=== PATIENT | female | born 1965 | race Caucasian/White ===

== ENCOUNTER 2021-11-28 00:30 | Day surgery (SDC) | payer BC, SELFPAY ==
[2021-11-16 13:22] VITALS: BMI 23.1
[2021-11-28 07:33] VITALS: BP 110/72; PULSE 86; RESP 18; TEMP 36.2; O2SAT 100
[2021-11-28] MEDS: LACTATED RINGERS 1,000 ML 150 ML IV CONT (07:41)
--- NOTE | 2021-11-28 08:12 | WPDGICN ---
Assessment and Plan Assessment and plan (1) Encounter for screening colonoscopy: Code(s): Z12.11 - Encounter for screening for malignant neoplasm of colon Status: Acute Assessment and Plan: Patient presents for screening colonoscopy. Appears to be at average risk for colon polyps. GI Consult Note Consult date/time: 11/28/21 08:12 HPI: Cris Ureña is a 56 year old female Presents for screening colonoscopy. Patient's current weight appetite and bowel movements are normal. She denies abdominal pain. She has had no bleeding. Family history is noncontributory. 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 History of IBS History of uterine fibroid HSV (herpes simplex virus) infection Menopause Neck nodule Nicotine dependence, cigarettes, uncomplicated Other fatigue Tobacco use Viral syndrome Vulvar cancer Surgical History Surgical History History of appendectomy Family History Family History Father Hypertension Family history of elevated blood lipids Cerebrovascular accident Family history of coronary artery disease Family history of hypercholesterolemia Family history of kidney disease Mother Patient's mother is in good health Patient's mother is Social History Social History Smoking packs per day: 0.5 Smoking cigarettes per day: 10.0 Years smoked: 40 Smoking pack-years: 20.00 Smoking status: Current every day smoker Tobacco type: cigarettes Second hand tobacco smoke exposure: Yes Alcohol intake: current Drinks per week: 14 Alcohol use details: socially Substance use: never Substance use type: does not use Living arrangements: with family Spiritual care concerns: No Meds Home Medications and Allergies Home Medications Medication Instructions Recorded Confirmed Type valacyclovir 500 mg tablet See Rx Instructions .ROUTE 02/02/21 11/16/21 Rx .COMPLEX #90 tablet conj estrogen-medroxyprogesterone 1 tablet PO DAILY #28 tablet 07/05/21 11/16/21 Rx 0.3 mg-1.5 mg tablet Adults Multivitamin 1 tab-cap PO DAILY 11/16/21 11/16/21 History aspirin [Adult Low Dose Aspirin] 81 mg PO DAILY 11/16/21 11/16/21 History Allergies Allergy/AdvReac Type Severity Reaction Status Date / Time iodine Allergy Unknown Hives Verified 11/28/21 07:32 Penicillins Allergy Unknown Hives Verified 11/28/21 07:32 Vital Signs Vital Signs - 24 hr 11/28/21 07:33 Temperature 97.1 F L Pulse Rate 86 Respiratory Rate 18 Blood Pressure 110/72 Pulse Oximetry 100 Exam Narrative: Physical exam reveals patient to be alert. Vital signs stable. HEENT exam is unremarkable. Patient is anicteric. Lungs are clear to auscultation and percussion. Heart is without murmur or extra sounds. Abdominal exam bowel sounds are present soft nontender with no hepatosplenomegaly. Digital external rectal exam is normal.
--- NOTE | 2021-11-28 08:12 | WPDANESEPPF ---
Anes - Initial Pre Proc Eval Procedure: Operation Date: 11/28/21 08:30 Proposed Procedures p Screening Colonoscopy - Stephen Alcantar MD Date/Time: 11/28/21 08:12 Surgeon: Stephen Alcantar MD Pre Op Diagnosis: neoplasm screening Patient Data Age: 56 Gender: F Height: 1.78 m Weight: 73.6 kg Last Vital Signs Temp 36.2 C L 11/28/21 07:33 Pulse 86 11/28/21 07:33 Resp 18 11/28/21 07:33 BP 110/72 11/28/21 07:33 Pulse Ox 100 11/28/21 07:33 Allergies Allergy/AdvReac Type Severity Reaction Status Date / Time iodine Allergy Unknown Hives Verified 11/28/21 07:32 Penicillins Allergy Unknown Hives Verified 11/28/21 07:32 Home Medications Medication Instructions Recorded Confirmed Type valacyclovir 500 mg tablet See Rx Instructions .ROUTE 02/02/21 11/16/21 Rx .COMPLEX #90 tablet conj estrogen-medroxyprogesterone 1 tablet PO DAILY #28 tablet 07/05/21 11/16/21 Rx 0.3 mg-1.5 mg tablet Adults Multivitamin 1 tab-cap PO DAILY 11/16/21 11/16/21 History aspirin [Adult Low Dose Aspirin] 81 mg PO DAILY 11/16/21 11/16/21 History Patient hx anesthesia problems: none Family hx anesthesia problems: none Results Review: All pre-operative results and documents have been reviewed as part of the pre-operative evaluation. 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 History of IBS History of uterine fibroid HSV (herpes simplex virus) infection Menopause Neck nodule Nicotine dependence, cigarettes, uncomplicated Other fatigue Tobacco use Viral syndrome Vulvar cancer Surgical History Surgical History History of appendectomy Family History Family History Father Hypertension Family history of elevated blood lipids Cerebrovascular accident Family history of coronary artery disease Family history of hypercholesterolemia Family history of kidney disease Mother Patient's mother is in good health Patient's mother is Social History Social History Smoking packs per day: 0.5 Smoking cigarettes per day: 10.0 Years smoked: 40 Smoking pack-years: 20.00 Smoking status: Current every day smoker Tobacco type: cigarettes Second hand tobacco smoke exposure: Yes Alcohol intake: current Drinks per week: 14 Alcohol use details: socially Substance use: never Substance use type: does not use Living arrangements: with family Spiritual care concerns: No Anes - Eval Final PreProcedure Day of Procedure 11/28/21 08:12 Patient weight: normal Heart: regular rate and rhythm Lungs: decreased breath sounds Airway: Mallampati scale class II Neurological: alert and oriented Last oral intake: >/= 8 hours ASA classification: III Emergent: no Anesthetic plan: proceed Anesthesia type and monitoring: general GIVS and standard monitoring Results Review: All pre-operative results and documents have been reviewed as part of the pre-operative evaluation. Informed Consent: The patient's anesthetic plan and its attendant risks and benefits were discussed with the patient/family/POA. Questions were solicited and answers provided to the satisfaction of the patient/family/POA.
[2021-11-28 08:40] VITALS: BP 122/78; PULSE 85; RESP 24; O2SAT 100
[2021-11-28 08:50] VITALS: BP 125/84; PULSE 73; RESP 23; O2SAT 100
[2021-11-28 09:00] VITALS: BP 138/86; PULSE 69; RESP 20; O2SAT 100
== END 2021-11-28 09:10 | disposition home or self-care (01) ==
PROVIDERS: PCP Family Medicine; Visit Provider Internal Medicine Gastroenterology
PROC: 0DJD8ZZ Inspection of Lower Intestinal Tract, Via Natural or Artificial Opening Endoscopic (ICD-10-PCS; CPT 45378; principal; 2021-11-28 08:30)
DX: Z12.11 Encounter for screening for malignant neoplasm of colon (principal); K64.8 Other hemorrhoids; F17.210 Nicotine dependence, cigarettes, uncomplicated
CPT/HCPCS: 45378; J2704; J7120

== ENCOUNTER 2024-07-22 12:46 | Emergency (ER) | payer BC, SELFPAY ==
--- NOTE | ~2024-07-22 | XR_ITS ---
Right Knee Technique: AP, lateral, and sunrise views were obtained. Clinical History: Pain Findings: No fracture or dislocation is seen. Osseous alignment is anatomic. Joint mild medial joint line spurring noted. Chondrocalcinosis of the menisci noted. No joint effusion is seen. Impression: No acute abnormality. Chondrocalcinosis of the menisci. Mild medial joint line spurring. Reviewed, dictated and finalized at location . Impression: No acute abnormality. Chondrocalcinosis of the menisci. Mild medial joint line spurring.
[2024-07-22 12:56] VITALS: BP 128/89; PULSE 93; RESP 16; TEMP 37.3; O2SAT 100
[2024-07-22 12:59] VITALS: BP 128/89; PULSE 93; RESP 16; TEMP 37.3; O2SAT 100
--- NOTE | 2024-07-22 13:35 | ED.EXTPRO ---
HPI - Extremity Problem General Chief complaint: Extremity Injury, Lower Stated complaint: R KNEE PAIN Time Seen by Provider: 07/22/24 13:16 Source: patient and RN notes reviewed Mode of arrival: ambulatory Limitations: no limitations History of Present Illness HPI Narrative: Patient presents today complaining of right lateral knee pain. States the severe pain woke her up in the middle of the night. Denies injury or trauma to the area. Denies numbness or tingling in the leg or foot. At rest she rates her pain 2/10, but this increases to 7/10 with movement. She has tried ibuprofen without relief. She has had 2 knee surgeries in the past, last was in 1989. Related Data Home Medications Medication Instructions Recorded Confirmed Adults Multivitamin 1 tab-cap PO DAILY 11/16/21 07/22/24 aspirin 81 mg tablet 81 mg PO DAILY 11/16/21 07/22/24 estradiol 0.045 mg-levonorgestrel 1 patch topical DIRECTED 07/22/24 07/22/24 0.015 mg/24hr weekly transderm patch (Climara Pro) estradiol 0.05 mg-norethindrone 1 patch topical DIRECTED 07/22/24 07/22/24 0.14 mg/24 hr semiwkly transderm patch (CombiPatch) Allergies Allergy/AdvReac Type Severity Reaction Status Date / Time iodine Allergy Unknown Hives Verified 07/22/24 12:51 Penicillins Allergy Unknown Hives Verified 07/22/24 12:51 Review of Systems Review of Systems: CONSTITUTIONAL: Denies body aches, fever, chills, or sweats. EYES: Denies visual changes, redness, or discharge. ENT: Denies rhinorrhea, congestion, sore throat, or otalgia. CARDIOVASCULAR: Denies chest pain, palpitations, or edema. RESPIRATORY: Denies cough or dyspnea. GASTROINTESTINAL: Denies abdominal pain, nausea, vomiting, or diarrhea. GENITOURINARY: Denies dysuria or hematuria. SKIN: Denies rash, itching, or wounds. MUSCULOSKELETAL: Denies back pain,or myalgia.+ right knee pain NEUROLOGIC: Denies headache, numbness, tingling, or weakness. PSYCH: Denies depression or anxiety. 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 History of IBS History of uterine fibroid HSV (herpes simplex virus) infection Menopause Neck nodule Nicotine dependence, cigarettes, uncomplicated Other fatigue Tobacco use Viral syndrome Vulvar cancer Surgical History Surgical History History of appendectomy Family History Family History Father Hypertension Family history of elevated blood lipids Cerebrovascular accident Family history of coronary artery disease Family history of hypercholesterolemia Family history of kidney disease Mother Patient's mother is in good health Patient's mother is Social History Social History Smoking packs per day: 0.5 Smoking cigarettes per day: 10.0 Years smoked: 40 Smoking pack-years: 20.00 Smoking status: Current every day smoker Tobacco type: cigarettes Second hand tobacco smoke exposure: Yes Alcohol intake: current Drinks per week: 14 Alcohol use details: socially Substance use: never Substance use type: does not use Lack of Transportation: No Lack of Food: Never True Current Housing: I Have Housing Concerned About Future Housing: No Difficulty Paying Gas/Electric Bills: No Difficulty Paying for Meds: No Currently Unemployed: No Education: Master's Degree or Higher Difficulty w/ Childcare or Family Care: No Living arrangements: with family Spiritual care concerns: No Comments At time of signature, I have reviewed and agree with nursing past medical, surgical, social and family history unless otherwise noted. Please see nursing chart for further information. There is no relevant fa
== END 2024-07-22 14:00 | disposition home or self-care (01) ==
PROVIDERS: Emergency Provider Nurse Practitioner; PCP Family Medicine
DX: M25.561 Pain in right knee (principal); F17.210 Nicotine dependence, cigarettes, uncomplicated; Z85.44 Personal history of malignant neoplasm of other female genital organs; Z79.82 Long term (current) use of aspirin
CPT/HCPCS: 73564; 99213; G0463

== ENCOUNTER 2024-11-18 12:46 | Outpatient (CLI) | payer BC, SELFPAY ==
--- NOTE | ~2024-11-18 | MR_ITS ---
EXAMINATION: MR foot RT wo con, MR ankle RT wo con DATE: 11/18/2024 13:15 INDICATION: Generalized right foot and ankle pain. Achilles tendinitis. TECHNIQUE: 1. Magnetic resonance imaging (MRI) of the right ankle/hindfoot was performed without intravenous con trast. Sequences included sagittal, coronal, and axial PD-weighted FSE and PD-weighted FS FSE. 2. MRI of the right fore/mid foot was performed without intravenous contrast. Sequences included sagi ttal T1-weighted FSE, sagittal fluid sensitive FSE STIR, coronal PD-weighted FS FSE, coronal T1-weigh sangita FSE, axial PD-weighted FS FSE, and axial PD-weighted FSE. COMPARISON: Right foot radiographs dated 01/21/2017 FINDINGS: Medial ankle ligaments: Deep and superficial deltoid ligaments as well as the spring ligament are normal. Lateral ankle ligaments: The anterior and posterior inferior tibiofibular, anterior and posterior talofibular as well as the c alcaneofibular ligaments are normal. Tendons: Mild Achilles tendinosis without discrete tear. Small enthesophytes at the calcaneal insertion of the Achilles tendon with mild overlying increased fluid signal consistent with mild Achilles bursitis.. The medial and lateral flexor as well as the extensor tendons of the foot/ankle are normal. Plantar fascia: Plantar aponeurosis is normal. Mid and forefoot ligaments: The Lisfranc ligament complex as well as the collateral ligament complex at the metatarsophalangeal a nd interphalangeal joints are normal. Bones/other: The previously seen fifth metatarsal fracture has healed in essentially normal alignment. Prior avuls ion fractures at the tip of the lateral malleolus at the anterior process of the calcaneus have also healed with no residual deformity. No acute fracture. No pathologic marrow replacing process. Mild os teoarthritis at the first metatarsophalangeal joint with mild subarticular edema-like signal change a t the central head of the first metatarsal consistent with overlying high-grade chondromalacia. Addit ional mild osteoarthritis without degenerative subchondral changes at a few of the tarsal metatarsal and interphalangeal joints. No erosions to suggest inflammatory arthritis. The intrinsic musculature of the foot appears normal with no atrophy or abnormal signal. Fluid: Physiologic amount fluid in the joint spaces. No bursitis, tenosynovitis or other abnormal fluid damián ections. IMPRESSION: 1. Mild Achilles tendinosis without tear but with small enthesophytes and associated mild Achilles bu rsitis. 2. 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 Reviewed, dictated and finalized at location [employer] IMPRESSION: 1. Mild Achilles tendinosis without tear but with small enthesophytes and assoc iated mild Achilles bursitis. 2. 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
== END 2024-11-18 12:47 | disposition home or self-care (01) ==
LOC: MICIMG 12:47
PROVIDERS: PCP Family Medicine; Visit Provider Podiatrist Foot & Ankle Surgery
DX: S92.314G Nondisplaced fracture of first metatarsal bone, right foot, subsequent encounter for fracture with delayed healing (principal); X58.XXXD Exposure to other specified factors, subsequent encounter
CPT/HCPCS: 73718; 73721